=== PATIENT | male | born 1965 ===

== ENCOUNTER → 2023-05-27 | Day surgery (SDC) | payer OTHER ==
[2023-05-20 09:16] LABS: HEMATOCRIT 42.5 % (39.0-48.0); MEAN CELL VOLUME 83.1 fL (80.0-100.00); MEAN CORPUSCULAR HEMOGLOBIN 29.4 pg (27.00-32.0); MEAN CORPUSCULAR HGB CONC 35.4 g/dl (32.0-36.0); PLATELET COUNT 187 K/uL (150-450); RED BLOOD COUNT 5.11 M/uL (4.00-6.00); RED CELL DISTRIBUTION WIDTH 13.8 % (11.5-14.5)
[2023-05-20 09:20] LABS: URINE APPEARANCE Clear; URINE BILIRRUBIN Negative (NEGATIVE); URINE BLOOD Negative; URINE COLOR Dark Yellow; URINE GLUCOSE Negative (NEGATIVE); URINE LEUKOCYTE Negative; URINE NITRATE Negative; URINE PROTEIN Negative (NEGATIVE); URINE UROBILINOGEN 0.2 E.U./dl
[2023-05-20 09:27] LABS: URINE BACTERIA 23.9 uL (0.0-1933); URINE EPITHELIAL CELLS 3.7 uL (0.0-38.8); URINE RBC 3.1 uL (0.0-20.8)
[2023-05-20 09:49] LABS: INR 1.05; PARTIAL THROMBOPLASTIN TIME 29.1 SECONDS (22.0-34.0)
[2023-05-20 10:14] LABS: ALBUMIN 4.2 gm/dL (3.4-5.0); BILIRUBIN TOTAL 0.58 mg/dL (0.3-1.2); CALCIUM 9.5 mg/dL (8.5-10.1); CREATININE SERUM 1.07 mg/dL (0.70-1.30); GFR 71.23; GLOBULINA 3.7 G/DL (2.4-3.5); POTASSIUM 4.21 mEq/L (3.5-5.1); TOTAL PROTEIN 7.9 gm/dL (6.4-8.2)
[~2023-05-27] MED LIST: ATACAND HCT 161 EACH; CEFAZOLIN SODIUM 1,000 MG VIAL IV ONE; CEFAZOLIN SODIUM 1,000 MG VIAL IV SCH; CEFAZOLIN SODIUM 1,000 MG VIAL ONE; LIDOCAINE HCL 1% 200MG/20ML VIAL IJ ONE; LIDOCAINE HCL 1%/Epi 20ML VIAL IJ ONE; NORVASC5 MG; TOPROL XL50 M1; TRICOR145 MG
== END | disposition home or self-care (01) ==
LOC: CIR.AMB 05-20 10:00 → ADM 05-20 10:00 → CIR.AMB 05:45
PROVIDERS: ATTEND Specialist
DX: D17.0 Benign lipomatous neoplasm of skin and subcutaneous tissue of head, face and neck (principal); E78.5 Hyperlipidemia, unspecified; I10 Essential (primary) hypertension; Z20.822 Contact with and (suspected) exposure to COVID-19